=== PATIENT | female | born 1955 | race Caucasian/White ===

== ENCOUNTER 2022-08-17 11:53 | Outpatient (CLI) | payer MEDICARE, BC | END 2022-08-17 11:54 | disposition home or self-care (01) | LOC: CSHULT 11:53 | PROVIDERS: ATTEND Otolaryngology Otolaryngic Allergy | DX: E04.1 Nontoxic single thyroid nodule (principal); E04.2 Nontoxic multinodular goiter; Z98.890 Other specified postprocedural states | CPT/HCPCS: 76536 ==

== ENCOUNTER 2023-09-09 10:00 | Outpatient (CLI) | payer MEDICARE, BC | END 2023-09-09 10:01 | disposition home or self-care (01) | LOC: CSHULT 10:00 | PROVIDERS: ATTEND Otolaryngology Otolaryngic Allergy | DX: E04.1 Nontoxic single thyroid nodule (principal); E04.2 Nontoxic multinodular goiter | CPT/HCPCS: 76536 ==

== ENCOUNTER 2023-11-21 12:35 | Emergency (ER) | payer MEDICARE, BC ==
[2023-11-21 13:48] LABS: #Basophils 0.03 10x3/uL (0.0-0.2); #Eosinphils 0.02 10x3/uL (0.0-0.5); #Monocytes 0.42 10x3/uL (0.0-1.1); #Neutrophils 5.18 10x3/uL (1.5-8.4); %Basophils 0.4 % (0.0-2.0); %Eosinophils 0.3 % (0.0-6.0); %Lymphocytes 23.8 % (18.0-47.0); %Monocytes 5.6 % (0.0-10.0); %Neutrophils 69.5 % (40.0-75.0); Hematocrit 38.8 % (34.9-44.5); Hemoglobin 14.2 g/dL (12.0-15.5); Mean Corpuscular HGB CONC 36.6 g/dL (32.0-36.0); Mean Corpuscular Hemoglobin 31.8 pg (27.0-33.0); Mean Corpuscular Volume 86.8 fL (81.6-98.3); Mean Platelet Volume 9.2 fL (7.4-10.4); Platelet Count 359 10x3/uL (150-450); RBC Distribution Width 12.2 % (11.5-14.5); Red Blood Cell (RBC) Count 4.47 10x6/uL (3.90-5.03); White Blood Cell (WBC) Count 7.5 10x3/uL (3.5-10.5)
[2023-11-21 14:05] LABS: Troponin I Less than 0.010 ng/mL (< 0.028)
[2023-11-21 14:06] LABS: ALT (SGPT) 14 U/L (8-55); AST (SGOT) 23 U/L (5-34); Albumin 4.7 g/dL (3.4-4.8); Alkaline Phosphatase 72 U/L (40-110); Anion Gap 17 mmol/L (10-20); BUN (Urea Nitrogen) 8 mg/dL (9.8-20.1); Bilirubin, Total 4.7 mg/dL (0.2-1.2); Calc. Creatinine Clearance 0 mL/min (70-130); Calcium 9.7 mg/dL (7.8-10.44); Carbon Dioxide 22 mmol/L (23-31); Chloride 97 mmol/L (98-107); Estimated GFR 78; Globulin 2.6 g/dL (2.4-3.5); Glucose 94 mg/dL (80-115); Lipase 21 U/L (8-78); Potassium 3.3 mmol/L (3.5-5.1); Protein, Total 7.3 g/dL (5.8-8.1); Sodium 133 mmol/L (136-145)
[2023-11-21] MEDS ORDERED: Potassium Chloride 20 MEQ TAB ONE (14:51)
[2023-11-21] MEDS ORDERED: Potassium Bicarbonate/Cit Ac 20 MEQ TAB ONE (14:54)
== END 2023-11-21 15:05 | disposition home or self-care (01) ==
LOC: CSHERS 12:35
DX: R00.2 Palpitations (principal); E87.6 Hypokalemia; R00.0 Tachycardia, unspecified; I10 Essential (primary) hypertension
CPT/HCPCS: 80053; 83605; 83690; 83735; 84443; 84484; 85025; 93005; 96360; 96361

== ENCOUNTER 2025-03-11 15:55 | Outpatient (CLI) | payer MEDICARE, BC | END 2025-03-11 15:56 | disposition home or self-care (01) | LOC: CSHRAD 15:55 | PROVIDERS: ATTEND Family Medicine | DX: M79.602 Pain in left arm (principal); S46.212A Strain of muscle, fascia and tendon of other parts of biceps, left arm, initial encounter ==